=== PATIENT | female | born 1945 | race Caucasian/White ===

== ENCOUNTER 2018-09-04 11:29 | Inpatient (IN) | payer MEDICARE, OTHER ==
[2018-08-29 10:37] LABS: Basophils # (auto) 0.1 uL; Eosinophils # (auto) 0.3 uL; Eosinophils % (auto) 4.4 % (0.0-7.0); Hematocrit 42.7 % (36.0-46.0); Lymphocytes # (auto) 1.6 uL; Lymphocytes % (auto) 24.5 % (10.0-50.0); Mean Corpuscular Hemoglobin 28.6 pg (28.0-32.0); Mean Corpuscular Hgb Conc. 32.8 g/dL (32.0-36.0); Mean Corpuscular Volume 87.3 fL (80.0-100.0); Monocytes # (auto) 0.7 uL; Monocytes % (auto) 10.9 % (0.0-12.0); Neutrophils % (auto) 59.2 % (37.0-80.0); Platelet Count (auto) 254 10^3/uL (140-450); Red Blood Cells 4.89 10^6/uL (4.0-5.20); Red Cell Distribution Width 16.2 % (11.8-14.3); White Blood Cell 6.7 10^3/uL (4.4-10.8)
[2018-08-29 10:42] LABS: Urine Bacteria FEW /hpf (None Seen); Urine Blood 1+ /uL (Negative); Urine Specific Gravity 1.011 (1.001-1.035); Urine WBC <1 /hpf (0 - 5)
[2018-08-29 10:51] LABS: INR 0.89 (0.9-1.15); Partial Thromboplastin Time 26.2 sec (23.78-33.04); Prothrombin Time 9.6 sec (9.27-12.13)
[2018-08-29 11:40] LABS: Albumin 3.4 g/dL (3.4-5.0); Calcium 8.8 mg/dL (8.5-10.1); Potassium 4.3 mmol/L (3.5-5.1)
[2018-08-29 11:45] LABS: Bilirubin, Total 0.3 mg/dL (0.2-1.0); Total Protein 7.4 g/dL (6.4-8.2)
[~2018-09-04] VITALS: Ht 170.2 cm; Wt 94.1 kg
[~2018-09-04 11:29] MED LIST: ASPI81TA27 PO; CARV3.1240 PO; CHOL100040 PO; COEN200C11 PO; FAM20T PO; GABA300C10 PO; LEVO50TA7 PO; MAGN400T21 PO; META-116 PO; OXYB5TAB61 PO; ROPI0.5T PO; SIMV-13 PO; TRAM50TA2 PO
[2018-09-04] MEDS ORDERED: ceFAZolin 1GM/50ML 50 ML IV ONE ×2 (12:28→14:45)
[2018-09-04] MEDS ORDERED: SUCCINYLCHOLINE CHLORIDE 20 MG/ML 10ML VIAL IV ONE (12:29)
[2018-09-04] MEDS ORDERED: SODIUM CHLORIDE LOCK 20 ML ONE (12:35)
[2018-09-04] MEDS ORDERED: ROCURONIUM 10MG/ML 10ML VIAL IV ONE (12:35)
[2018-09-04] MEDS ORDERED: PROPOFOL 10 MG/ML 20 ML IV ONE (12:35)
[2018-09-04] MEDS ORDERED: fentaNYL CITRATE 100 MCG/2 ML VL ONE (12:35)
[2018-09-04] MEDS ORDERED: HYDROmorphone HCL 2 MG/ML VL ONE (12:35)
[2018-09-04] MEDS ORDERED: MIDAZOLAM HCL 1MG/1ML-2 ML VIAL ONE (12:35)
[2018-09-04] MEDS ORDERED: BUPIVACAINE 0.25% INJ 50ML VIAL ONE (12:35)
[2018-09-04] MEDS ORDERED: ONDANSETRON HCL 4 MG/2 ML VIAL ONE (12:35)
[2018-09-04] MEDS ORDERED: BUPIVACAINE HCL 50 ML ONE (12:35)
[2018-09-04] MEDS ORDERED: LIDOCAINE W/ EPINEPHRINE 1% 20ML VIAL ONE (12:35)
[2018-09-04] MEDS ORDERED: fentaNYL CITRATE 5 ML ONE (12:35)
[2018-09-04] MEDS ORDERED: METOCLOPRAMIDE HCL 5MG/ml INJ 2ml VIAL IV ONE (14:00)
[2018-09-04] MEDS ORDERED: KETOROLAC TROMETH 30 MG/ML 1ML VIAL IV ONE (14:00)
[2018-09-04] MEDS ORDERED: ACETAMINOPHEN 500 MG TAB PO PRN (14:45)
[2018-09-04] MEDS ORDERED: NITROGLYCERIN 0.4 MG SL TAB SL PRN (14:45)
[2018-09-04] MEDS ORDERED: MORPHINE SULFATE 4 MG/ML SYR/VIAL IV PRN (14:45)
[2018-09-04] MEDS ORDERED: HYDROcodone-ACET 5/325MG TAB PO PRN (14:45)
[2018-09-04] MEDS ORDERED: METHYLENE BLUE 0.5% 5MG/ML 10ml AMP IV ONE (14:46)
[2018-09-04] MEDS ORDERED: CONJ ESTROGENS 0.625MG/GM VAG CRM 30GM PV ONE (16:39)
[2018-09-04] MEDS: HYDROmorphone HCL 2 MG/ML VL IV PRN ×4 (17:10→17:40)
[2018-09-04] MEDS ORDERED: hydrALAZINE HCL 20 MG/ML VL IV PRN (17:15)
[2018-09-04] MEDS ORDERED: ePHEDrine SULFATE 50 MG/ML AMP IV PRN (17:15)
[2018-09-04] MEDS ORDERED: ONDANSETRON HCL 4 MG/2 ML VIAL IV ONE (17:15)
--- NOTE | 2018-09-04 18:10 | NUR ---
OPENING PATIENT ON THE UNIT, WILL F/U WITH ASSESSMENT
[2018-09-04] MEDS: MORPHINE SULFATE 4 MG/ML SYR/VIAL IV PRN ×2 (18:59→23:26)
[2018-09-04 19:00] VITALS: BP 153/63
--- NOTE | 2018-09-04 19:25 | NUR ---
Opening Shift Note Assumed care of patient from day shift RN Suzanna. Pt is awake and alert and oriented x4. Pt on 2L NC, respirations even equal and unlabored. No S/S of distress/SOB or pain. Safety maintained with bed rails upx2, locked and in lowest position with call lock within reach. Instructed on POC and to call for assist PRN, will continue to monitor for changes Q1hr and PRN.
[2018-09-04] MEDS: ONDANSETRON HCL 4 MG/2 ML VIAL IV PRN (20:06)
[2018-09-04 22:00] VITALS: BP 153/63
[2018-09-04] MEDS: SODIUM CHLORIDE 0.9% 1,000 ML IV SCH ×2 (22:32→22:43)
[2018-09-05] MEDS: MORPHINE SULFATE 4 MG/ML SYR/VIAL IV PRN ×4 (03:53→18:47)
[2018-09-05] MEDS: ONDANSETRON HCL 4 MG/2 ML VIAL IV PRN ×4 (03:59→18:47)
[2018-09-05 04:55] VITALS: BP 141/68
[2018-09-05] MEDS: SODIUM CHLORIDE 0.9% 1,000 ML IV SCH ×3 (05:47→22:26)
[2018-09-05 06:59] LABS: Basophils # (auto) 0 uL; Basophils % (auto) 0.5 % (0.0-2.0); Eosinophils # (auto) 0.1 uL; Eosinophils % (auto) 0.8 % (0.0-7.0); Hematocrit 37.8 % (36.0-46.0); Hemoglobin 12.2 g/dL (12.2-16.2); Lymphocytes # (auto) 1.1 uL; Lymphocytes % (auto) 13.4 % (10.0-50.0); Mean Corpuscular Hemoglobin 28.3 pg (28.0-32.0); Mean Corpuscular Hgb Conc. 32.3 g/dL (32.0-36.0); Mean Corpuscular Volume 87.6 fL (80.0-100.0); Monocytes # (auto) 0.8 uL; Neutrophils # (auto) 6.4 uL; Neutrophils % (auto) 76.3 % (37.0-80.0); Platelet Count (auto) 207 10^3/uL (140-450); Red Blood Cells 4.31 10^6/uL (4.0-5.20); Red Cell Distribution Width 16.2 % (11.8-14.3); White Blood Cell 8.4 10^3/uL (4.4-10.8)
--- NOTE | 2018-09-05 07:35 | NUR ---
OPENING NOTE ASSUMED CARE OF PT. PT IS SITTING ON BED, HOB SEMI-FOWLERS. A&O X4. PT ON 2 LPM/NC, O2 SATURATION 96%. NO SIGNS OF SOB/DISTRESS NOTED. ABD DRESSING CLEAN, DRY AND INTACT. LOVE CATH INTACT PATEN, DRAINING YELLOW CLEAR URINE TO GRAVITY. SAFETY PRECAUTIONS IN PLACE INCLUDING, BED SET ON LOWEST POSITION/LOCKED. BEDSIDE RAILS UP X2. CALL LIGHT WITHIN REACH. INSTRUCTED PT TO CALL FOR ASSISTANCE. DISCUSSED POC WITH PT. PT VERBALIZED UNDERSTANDING. WILL CONTINUE TO MONITOR Q 1HR AND PRN.
[2018-09-05 09:00] VITALS: BP 132/68
--- NOTE | 2018-09-05 10:30 | NUR ---
VAGINAL PACKING REMOVER PER ORDER. LIGHT BLOOD SATURATION ON PACKING. PATIENT TOLERATED WELL. WILL CONTINUE TO MONITOR.
[2018-09-05 13:00] VITALS: BP 157/66
[2018-09-05 17:06] VITALS: BP 144/58
--- NOTE | 2018-09-05 19:13 | NUR ---
ENDORSED CARE TO LEE ALVARADO.
--- NOTE | 2018-09-05 19:20 | NUR ---
Opening Shift Note Assumed care of patient from day shift RN Marilynn. Pt is asleep, resting in bed, on 2L NC, respirations even equal and unlabored. No S/S of distress/SOB or pain. Safety maintained with bed rails upx2, locked and in lowest position with call lock within reach. Instructed on POC and to call for assist PRN, will continue to monitor for changes Q1hr and PRN.
[2018-09-05] MEDS ORDERED: HYDROmorphone HCL 2 MG/ML VL IV PRN (19:30)
[2018-09-05] MEDS ORDERED: ZOLPIDEM TARTRATE 5 MG TAB PO ONE (19:30)
[2018-09-05] MEDS: GABAPENTIN 300 MG CAP PO SCH (21:48)
[2018-09-05 21:55] VITALS: BP 151/62
[2018-09-05] MEDS ORDERED: FAMOTIDINE 20 MG TAB PO SCH (22:00)
[2018-09-05] MEDS ORDERED: CARVEDILOL 3.125 MG TAB PO SCH (22:00)
[2018-09-06 05:04] VITALS: BP 131/58
[2018-09-06] MEDS: GABAPENTIN 300 MG CAP PO SCH (06:09)
[2018-09-06] MEDS: SODIUM CHLORIDE 0.9% 1,000 ML IV SCH (06:22)
[2018-09-06] MEDS ORDERED: LEVOTHYROXINE SODIUM 50 MCG TAB PO SCH (07:00)
--- NOTE | 2018-09-06 07:25 | NUR ---
OPENING NOTE ASSUMED CARE OF PT. PT IS LAYING ON BED, HOB LOW-FOWLERS. A&O X4. PT ON 2 LPM/NC, O2 SATURATION 91%. NO SIGNS OF SOB/DISTRESS NOTED. ABD DRESSING CLEAN, DRY AND INTACT. LOVE CATH INTACT PATEN, DRAINING YELLOW CLEAR URINE TO GRAVITY. SAFETY PRECAUTIONS IN PLACE INCLUDING, BED SET ON LOWEST POSITION/LOCKED. BEDSIDE RAILS UP X2. CALL LIGHT WITHIN REACH. INSTRUCTED PT TO CALL FOR ASSISTANCE. DISCUSSED POC WITH PT. PT VERBALIZED UNDERSTANDING. WILL CONTINUE TO MONITOR Q 1HR AND PRN.
[2018-09-06 08:00] VITALS: BP 144/66
[2018-09-06 10:15] VITALS: BP 144/66
--- NOTE | 2018-09-06 11:10 | NUR ---
Discharge instructions given as ordered. Encourage to follow up with Dr. Smalls within 2-3 weeks. All questions and concerns addressed. No home medications held in Pharmacy and no vaccines given. IV removed with catheter intact, pressure dressing applied, shahid catheter intact, patent draining yellow clear urine. Patient was instructed to remove shahid cath at home on Saturday per doctors orders. Patient verbalized understanding.
--- NOTE | 2018-09-06 11:37 | NUR ---
Patient taken to vehicle via wheelchair with all personal belongings, accompanied by staff and family member. No distress noted at time of departure.
== END 2018-09-06 12:01 | disposition home or self-care (01) | DRG 747 ==
LOC: SUR 11:29 → TELE-CENTR 18:40
PROVIDERS: ADMIT Obstetrics & Gynecology; ATTEND Obstetrics & Gynecology
PROC: 0USG4ZZ Reposition Vagina, Percutaneous Endoscopic Approach (ICD-10-PCS; 2018-09-04)
PROC: 0TSD4ZZ Reposition Urethra, Percutaneous Endoscopic Approach (ICD-10-PCS; 2018-09-04)
PROC: 8E0Y3CZ Robotic Assisted Procedure of Lower Extremity, Percutaneous Approach (ICD-10-PCS; 2018-09-04)
PROC: 0JQC3ZZ Repair Pelvic Region Subcutaneous Tissue and Fascia, Percutaneous Approach (ICD-10-PCS; 2018-09-04)
PROC: 0UBG0ZZ Excision of Vagina, Open Approach (ICD-10-PCS; 2018-09-04)
PROC: 0TJB8ZZ Inspection of Bladder, Via Natural or Artificial Opening Endoscopic (ICD-10-PCS; 2018-09-04)
PROC: 0UQF4ZZ Repair Cul-de-sac, Percutaneous Endoscopic Approach (ICD-10-PCS; principal; 2018-09-04 14:06)
DX: N81.11 Cystocele, midline (principal); N39.3 Stress incontinence (female) (male); N81.89 Other female genital prolapse; I50.9 Heart failure, unspecified; E78.5 Hyperlipidemia, unspecified; Z98.41 Cataract extraction status, right eye; Z95.1 Presence of aortocoronary bypass graft; Z90.710 Acquired absence of both cervix and uterus; Z98.42 Cataract extraction status, left eye
CPT/HCPCS: 36415; 80053; 81001; 85025; 85610; 85730; 86850; 86900; 86901; 87086; C1713; C1771; G0378; J0330; J0690; J1885; J2250; J2405; J2704; J3490